=== PATIENT | female | born 1965 ===

== ENCOUNTER 2019-09-18 16:24 | Outpatient (CLI) | payer OTHER, SELFPAY ==
--- NOTE | ~2019-09-18 | MR_ITS ---
EXAMINATION: MR lumbar spine wo con DATE: 09/18/2019 17:21 INDICATION: Low back pain. TECHNIQUE: Magnetic resonance imaging (MRI) of the lumbar spine was performed without intravenous con trast. Sequences included sagittal T2-weighted FSE, sagittal T2-weighted FS FSE, sagittal T1-weighted FSE, and axial T2-weighted FSE. COMPARISON: Lumbar spine radiographs 09/18/2019 FINDINGS: There is 2 mm anterolisthesis of L5 on S1. There is mild chronic anterior wedging of T12 ve rtebral body. There is severely decreased disc height at T11-T12, mildly decreased disc height at T12 -L1, and moderately decreased disc height at L5-S1. The distal spinal cord signal intensity is normal . The conus medullaris is at L1. The following disc levels are specifically discussed: L1-L2: There is a left central extrusion with 7 mm superior extension. There is mild bilateral facet joint osteoarthritis. There is no neural foraminal stenosis. There is mild central canal stenosis. L2-L3: The disc does not extend beyond the endplate margin. There is mild bilateral facet joint osteo arthritis. There is no neural foraminal stenosis. There is no central canal stenosis. L3-L4: The disc is bulging. There is moderate bilateral facet joint osteoarthritis. There is mild maged ateral neural foraminal stenosis. There is mild central canal stenosis. L4-L5: The disc is bulging and has an annular fissure. There is severe bilateral facet joint osteoart hritis. There is mild right and moderate left neural foraminal stenosis. There is mild central canal stenosis. L5-S1: The disc is bulging and has an annular fissure. There is severe bilateral facet joint osteoart hritis. There is moderate bilateral neural foraminal stenosis. There is mild central canal stenosis. IMPRESSION: 1. Moderate lumbar spondylosis. Reviewed, dictated and finalized at location A.
--- NOTE | ~2019-09-18 | XR_ITS ---
XR lumbar spine min 4V 09/18/2019 17:49 Indication: Low back pain Procedure: 5 views lumbar spine Comparison: No prior studies for comparison. Findings: There is mild wedge compression deformity of T12, likely chronic. Small ventral osteophytes at this level. There is disc narrowing at L4-5 and L5-S1. There are facet degenerative changes at th bianca levels. Pedicles intact. There are surgical clips in the pelvis. Impression: 1: Mild-moderate lower lumbar spondylosis. 2: Mild wedge compression deformity of T12 which is likely chronic. Reviewed, dictated and finalized at location A. Impression: 1: Mild-moderate lower lumbar spondylosis. 2: Mild wedge compression deformity of T12 which is likely chronic.
--- NOTE | ~2019-09-18 | XR_ITS ---
XR knee RT min 4V, XR knee LT min 4V 09/18/2019 17:48 Indication: Bilateral knee pain Procedure: 4 views of each knee Comparison: No prior studies for comparison. Findings: There is patellofemoral compartment osteoarthritis bilaterally, right greater than left. No acute fracture or traumatic malalignment. No significant joint effusion. No radiopaque foreign sandra s. There is a loose body inferior to the joint space on the right. Impression: 1: Bilateral patellofemoral compartment osteoarthritis, right greater than left. Reviewed, dictated and finalized at location A. Impression: 1: Bilateral patellofemoral compartment osteoarthritis, right greater than left . Impression: 1: Bilateral patellofemoral compartment osteoarthritis, right greater than left .
== END 2019-09-18 16:25 | disposition home or self-care (01) ==
PROVIDERS: PCP Family Medicine
DX: M54.5 Low back pain (principal); M25.562 Pain in left knee; M25.561 Pain in right knee; M47.816 Spondylosis without myelopathy or radiculopathy, lumbar region; S22.080A Wedge compression fracture of T11-T12 vertebra, initial encounter for closed fracture; M17.0 Bilateral primary osteoarthritis of knee
CPT/HCPCS: 72110; 72148; 73564